=== PATIENT | male | born 1985 | race Hispanic/Latino ===

== ENCOUNTER 2016-11-27 12:43 | Emergency (ER) | payer OTHER ==
[~2016-11-27] VITALS: Ht 167.6 cm; Wt 95.3 kg
[2016-11-27 12:48] VITALS: BP 148/101
--- NOTE | 2016-11-27 13:00 | ED INFLUENZA/URI COMPLAINT ---
History of Present Illness General Chief Complaint: Sore Throat, Dental Pain Stated Complaint: SORE/SWOLLEN GLANDS IN THROAT, SINUS PRESSURE Source: patient, family, old records Exam Limitations: no limitations Vital Signs & Intake/Output Vital Signs & Intake/Output Vital Signs Date Time Temp Pulse Resp B/P Pulse O2 O2 Flow FiO2 Ox Delivery Rate 11/27 1248 97.0 98 16 148/101 97 Room Air Allergies Coded Allergies: No Known Allergies (11/27/16) Reconcile Medications Amoxicillin/Potassium Clav (Augmentin 875-125 Tablet) 875 MG-125 MG TABLET 1 TAB PO BID sinusitis Triage Note: PT STATES HE HAS PAIN IN HIS NECK STATES HE HAS HAD IT FOR THE PAST 2 WEEKS. Triage Nurses Notes Reviewed? yes Onset: Gradual Duration: week(s): (2), constant Timing: recent history Severity: mild, moderate Severity Numbers: 4 Prior Episodes/Possible Cause: occassional episodes No Modifying Factors: none Associated Symptoms: congestion, sinus pressure HPI: 30-year-old male with no medical history presents complaining of swollen lymph nodes to his neck sinus pressure rhinorrhea congestion for the past 2 weeks. He is not attempted any [id number] medications for the same. He reports his son recently had the flu. The patient denies cough fever chills no pain with swallowing no change in his voice. He denies any shortness of breath abdominal pain nausea or vomiting. There are no modifying factors or associated symptoms otherwise no recent travel Past History Travel History Traveled to [place] past 21 day No Medical History Any Pertinent Medical History? none Surgical History Surgical History: none Psychosocial History What is your primary language Estonian Tobacco Use: Never used ETOH Use: denies use Illicit Drug Use: denies illicit drug use Family History Hx Contributory? No Review of Systems Review of Systems Constitutional: Reports: see HPI. All Other Systems: Reviewed and Negative Comments Review of systems: See HPI, All other systems negative. Constitutional, no chills no fever, no malaise HEENT: No visual changes sore throat congestion Cardiovascular: No chest pain , no palpitation , Skin, no jaundice no rashes, no change in skin Respiratory: No dyspnea no cough no sputum GI: No nausea no vomiting, no diarrhea, : No dysuria Muscle skeletal: No joint pain, no joint swelling,, no neck pain, Neurologic: No numbness no headache Psych: No stress Heme/endocrine: No bruising no bleeding Immunology: No lymphadenopathy Physical Exam Physical Exam General Appearance: well developed/nourished, no apparent distress, alert, awake Ears, Nose, Throat: moist mucous membrane, hearing grossly normal, Tympanic normal Comments: Well-developed well-nourished patient in no apparent distress. Head/Face: Atraumatic, (+) b/l maxillary/frontal sinus tenderness, no facial swelling Eyes: PERRL, EOMI, no conjunctival injection. No nystagmus Ear:External auditory canal and Tympanic membranes clear, no erythema, no FB. Nose: atraumatic.Normal inspection Throat: Moist mucous membranes.Pharynx normal. No pharyngeal erythema/exudate seen. No stridor/drooling or assymetry. No swelling or edema. no trismus, no uvual displacement, no palp thyroidmegaly Neck: Supple, (+) b/l anterior cervical lymphadenopathy, FROM Back: FROM, Nontender Cardiovascular: Regular rate and rhythms no murmurs rubs or gallops, Respiratory: Chest nontender.There were no bony deformities, no asymmetry. No respiratory distress. Patient speaking in full complete sentences. Breath sounds clear to auscultation bilaterally: NO W/R/R Extremities: full range of motion Neuro: Alert and oriented x3 Skin: Warm & dry;No appreciable rash on exposed skin Psych: Mood affect normal, normal memory normal judgment. Core Measures Severe Sepsis Present: No Septic Shock Present: No Progress Differential Diagnosis: influenza, otitis, pneumonia, pharyngitis, sinusitis, pharyngitis, mono, malignancy Plan of Care: advised close follow upwith pmd, rx for augmentin provided. they feel comfort with plan Initial ED EKG: none Departure Departure Time of Disposition: 1306 Disposition: HOME OR SELF CARE Condition: Stable Clinical Impression Primary Impression: Sinusitis Secondary Impressions: Lymphadenopathy Referrals: PATIENT HAS NO PRIMARY CARE DR (PCP/Family) ANGIE WASHINGTON,LINDA Additional Instructions: augmentin as directed. tylenol or motrin for pain. follow up with pmd dr saunders- return to the ER with any concerns. this was sent to [facility] in [place]. Departure Forms: Customer Survey General Discharge Information Prescriptions: Current Visit Scripts Amoxicillin/Potassium Clav (Augmentin 875-125 Tablet) 1 TAB PO BID #14 TAB
[2016-11-27] MEDS ORDERED: AUGMENTIN 875-1 EACH PO (13:08)
== END 2016-11-27 13:14 ==
LOC: ERH 12:43
DX: J32.9 Chronic sinusitis, unspecified (principal); R59.1 Generalized enlarged lymph nodes